=== PATIENT | female | born 1975 | race Caucasian/White ===

== ENCOUNTER 2021-01-11 19:43 | Emergency (ER) | payer OTHER ==
[~2021-01-11] VITALS: Ht 175.3 cm; Wt 70.3 kg
[2021-01-12] MEDS ORDERED: KETO10TA2 PO (04:20)
== END 2021-01-12 04:27 | disposition home or self-care (01) ==
LOC: ER 19:43
DX: N83.291 Other ovarian cyst, right side (principal)

== ENCOUNTER 2021-01-13 23:04 | Emergency (ER) | payer OTHER ==
[~2021-01-13] VITALS: Ht 172.7 cm; Wt 73.5 kg
[~2021-01-13 23:04] MED LIST: KETO10TA2 PO
[2021-01-14] MEDS ORDERED: NAPROXEN375 MG PO (01:17)
== END 2021-01-14 03:09 | disposition home or self-care (01) ==
LOC: ER 23:04
DX: S00.211A Abrasion of right eyelid and periocular area, initial encounter (principal); T65.94XA Toxic effect of unspecified substance, undetermined, initial encounter; X58.XXXA Exposure to other specified factors, initial encounter; Y92.89 Other specified places as the place of occurrence of the external cause

== ENCOUNTER → 2021-02-09 | Emergency (ER) | payer OTHER ==
[~2021-02-09] MED LIST changes: +ACETAMINOPHEN650 M2; +NAPROXEN375 MG PO
== END | disposition left against medical advice (07) ==
LOC: ER 17:27
DX: Z53.21 Procedure and treatment not carried out due to patient leaving prior to being seen by health care provider (principal)

== ENCOUNTER 2021-06-12 06:48 | Emergency (ER) | payer OTHER ==
[~2021-06-12] VITALS: Ht 172.7 cm; Wt 76.2 kg
[2021-06-15] MEDS ORDERED: PERCOC PO (13:14)
== END 2021-06-12 16:16 | disposition home or self-care (01) ==
LOC: ER 06:48
DX: S52.502A Unspecified fracture of the lower end of left radius, initial encounter for closed fracture (principal); W19.XXXA Unspecified fall, initial encounter; Y93.9 Activity, unspecified; Y92.89 Other specified places as the place of occurrence of the external cause; Y99.9 Unspecified external cause status

== ENCOUNTER 2021-06-13 11:39 | Outpatient (CLI) | payer OTHER ==
[2021-06-15] MEDS ORDERED: PERCOC PO (13:14)
== END 2021-06-13 13:36 | disposition home or self-care (01) ==
LOC: LAB 11:39 → EKG 11:39 → LAB 13:36
PROVIDERS: ATTEND Orthopaedic Surgery
DX: I49.9 Cardiac arrhythmia, unspecified (principal); I10 Essential (primary) hypertension; Z76.89 Persons encountering health services in other specified circumstances

== ENCOUNTER 2021-06-14 08:21 | Outpatient (CLI) | payer OTHER ==
[2021-06-15] MEDS ORDERED: PERCOC PO (13:14)
== END 2021-06-14 08:38 | disposition home or self-care (01) ==
LOC: LAB 08:21
PROVIDERS: ATTEND Orthopaedic Surgery
DX: D64.9 Anemia, unspecified (principal); D68.8 Other specified coagulation defects; N39.0 Urinary tract infection, site not specified; E88.9 Metabolic disorder, unspecified; A49.02 Methicillin resistant Staphylococcus aureus infection, unspecified site; I10 Essential (primary) hypertension

== ENCOUNTER 2021-06-16 14:00 | Day surgery (SDC) | payer OTHER ==
[~2021-06-16 14:00] MED LIST changes: +PERCOC PO
== END 2021-06-16 19:27 | disposition home or self-care (01) ==
LOC: CIR.AMB 14:00 → U 15:15 → CIR.AMB 15:15 → ADM 06-19 07:45
PROVIDERS: ATTEND Orthopaedic Surgery
DX: S52.572A Other intraarticular fracture of lower end of left radius, initial encounter for closed fracture (principal); M62.432 Contracture of muscle, left forearm; M65.4 Radial styloid tenosynovitis [de Quervain]; Z20.822 Contact with and (suspected) exposure to COVID-19; Z88.8 Allergy status to other drugs, medicaments and biological substances; F41.0 Panic disorder [episodic paroxysmal anxiety]
CPT/HCPCS: 20902; 25000; 25609; L8699

== ENCOUNTER 2021-07-05 09:44 | Outpatient (CLI) | payer OTHER | END 2021-07-05 09:51 | disposition home or self-care (01) | LOC: RAD 09:44 | DX: M79.642 Pain in left hand (principal) ==

== ENCOUNTER 2021-08-02 09:25 | Outpatient (CLI) | payer OTHER | END 2021-08-02 09:34 | disposition home or self-care (01) | LOC: RAD 09:25 | DX: S52.532D Colles' fracture of left radius, subsequent encounter for closed fracture with routine healing (principal) ==

== ENCOUNTER 2021-12-27 10:41 | Outpatient (CLI) | payer OTHER | END 2021-12-27 10:47 | disposition home or self-care (01) | LOC: RAD 10:41 | DX: M79.642 Pain in left hand (principal) ==